=== PATIENT | female | born 1990 | race Caucasian/White ===

== ENCOUNTER 2018-03-11 14:52 | Emergency (ER) | payer OTHER ==
[2018-03-11 15:57] LABS: ABS Basophils 0.1 10^3/ul (0-0.2); ABS Eosinophils 0.1 10^3/ul (0-0.6); ABS Lymphocytes 3.2 10^3/ul (1.0-4.8); ABS Monocytes 0.6 10^3/ul (0-0.8); ABS Neutrophils 5.2 10^3/ul (1.5-7.7); ABS Nucleated RBC 0 10^3/ul; Eosinophil % 1.1 % (0-6); Hematocrit 37 % (35-47); Hemoglobin 12.9 g/dl (12.0-16.0); Lymphocyte % 34.8 % (25-47); Mean Corpuscular HGB Conc 35 g/dl (31-36); Mean Corpuscular Hemoglobin 30 pg (27-31); Mean Corpuscular Volume 86 fL (80-97); Mean Platelet Volume 9.8 um3 (7.4-10.4); Nucleated Red Blood Cells % 0; Platelet Count 235 10^3/ul (150-450); Red Cell Distribution Width 13 % (10.5-15); White Blood Count 9.3 10^3/ul (3.5-10.8)
[2018-03-11 16:23] LABS: Urine Appearance Cloudy; Urine Blood 3+ (Negative); Urine Color Amber; Urine Ketones Trace (Negative); Urine Protein 2+(100 mg/dL) (Negative); Urine Urobilinogen Negative (Negative)
[2018-03-11] MEDS ORDERED: Ketorolac INJ* 30 MG/ML 1 ML VIAL IV PUSH ONE (17:13)
[2018-03-11] MEDS ORDERED: NS 0.9% 1000 ML* 1,000 ML IV ONE (17:13)
--- NOTE | 2018-03-11 17:15 | RAD ---
INDICATION: Pelvic pain COMPARISON: None TECHNIQUE: Longitudinal and transverse transvaginal scans of the pelvis were obtained. FINDINGS: Uterus: The uterus is normal in size. There are no focal masses. The uterus measures 7.9 x 4.1 x 4.5 cm. Endometrial thickness: The endometrial thickness is measured at 1.0 cm. . Free fluid: There is trace significant free fluid . Ovaries: The ovaries are normal in size. The right ovary measures 5.0 x 2.9 x 3.8 cm. The left ovary measures 2.3 x 1.9 x 3.6 cm. There is a small right renal cyst measuring 1.8 cm likely representing a functional cyst.. Doppler interrogation demonstrates flow to each ovary. Other: None IMPRESSION: TRACE FREE FLUID. SMALL RIGHT OVARIAN CYST
--- NOTE | 2018-03-11 18:03 | ED ---
To Vega Stephanie, scribed for Christopher Card MD on 03/11/18 at 1545 . Abdominal Pain/Female - HPI Summary HPI Summary: The pt is a 27 y/o F presenting to the ED with c/o L sided abd pain that began last night. Symptoms include vaginal bleeding with bright red blood. The pt states her current bleeding is different from menstrual bleeding. Her abd pain is described as sharp and severe. She had her last US 6 months ago. LKMP was 2 months ago. - History of Current Complaint Chief Complaint: EDOBProblems Stated Complaint: PELVIC PAIN Time Seen by Provider: 03/11/18 15:32 Hx Obtained From: Patient Hx Last Menstrual Period: 01/02/18 Onset/Duration: Sudden Onset, Lasting Days - 1, Still Present Timing: Constant Severity Currently: Severe Pain Intensity: 8 Pain Scale Used: 0-10 Numeric Location: Suprapubic Radiates: No Character: Sharp Aggravating Factor(s): Nothing Alleviating Factor(s): Nothing Associated Signs and Symptoms: Positive: Vaginal Bleeding Allergies/Adverse Reactions: Allergies Allergy/AdvReac Type Severity Reaction Status Date / Time albuterol Allergy Rash Verified 03/11/18 15:18 Home Medications: Home Medications Fluticasone DISKUS 250 MCG(NF) [Flovent Diskus 250 MCG(NF)] 1 puff INH BID 03/11 [History Confirmed 03/11/18] Ipratropium HFA INHALER(NF) [Atrovent Hfa Inhaler(NF)] 2 puff INH Q6H PRN [History Confirmed 03/11/18] metFORMIN* [Glucophage 500 MG TAB *] 500 mg PO BID 03/11/18 [History Confirmed 03/11/18] PMH/Surg Hx/FS Hx/Imm Hx Sensory History: Denies: Hx Legally Blind EENT History: Denies: Hx Deafness - Surgical History Surgery Procedure, Year, and Place: NONE Infectious Disease History: No Infectious Disease History: Denies: Traveled Outside the [place] in Last 30 Days - Family History Known Family History: Negative: Renal Disease - Social History Occupation: Unemployed Lives: With Family Review of Systems Negative: Fever Positive: Abdominal Pain Positive: Other - vaginal bleeding Negative: Slurred Speech All Other Systems Reviewed And Are Negative: Yes Physical Exam - Summary Physical Exam Summary: VITAL SIGNS: Reviewed. GENERAL: Patient is a well-developed and nourished FEMALE who is lying comfortable in the stretcher. Patient is not in any acute respiratory distress. HEAD AND FACE: No signs of trauma. No ecchymosis, hematomas or skull depressions. No sinus tenderness. EYES: PERRLA, EOMI x 2, No injected conjunctiva, no nystagmus. EARS: Hearing grossly intact. Ear canals and tympanic membranes are within normal limits. MOUTH: Oropharynx within normal limits. NECK: Supple, trachea is midline, no adenopathy, no JVD, no carotid bruit, no c- spine tenderness, neck with full ROM. CHEST: Symmetric, no tenderness at palpation LUNGS: Clear to auscultation bilaterally. No wheezing or crackles. CVS: Regular rate and rhythm, S1 and S2 present, no murmurs or gallops appreciated. ABDOMEN: Soft, L pelvis tenderness with palpation. No signs of distention. No rebound no guarding, and no masses palpated. Bowel sounds are normal. EXTREMITIES: FROM in all major joints, no edema, no cyanosis or clubbing. NEURO: Alert and oriented x 3. No acute neurological deficits. Speech is normal and follows commands. SKIN: Dry and warm Triage Information Reviewed: Yes Vital Signs On Initial Exam: Initial Vitals Pulse BP Pulse Ox 61 119/66 100 03/11/18 15:17 03/11/18 15:17 03/11/18 15:17 Vital Signs Reviewed: Yes Diagnostics - Vital Signs Vital Signs Temp Pulse Resp BP Pulse Ox 03/11/18 15:19 97.8 F 50 16 119/66 100 03/11/18 15:17 61 119/66 100 - Laboratory Lab Results: Lab Results 03/11/18 03/11/18 03/11/18 Range/Units 15:44 15:44 16:11 WBC 9.3 (3.5-10.8) 10^3/ul RBC 4.30 (4.0-5.4) 10^6/ul Hgb 12.9 (12.0-16.0) g/dl Hct 37 (35-47) % MCV 86 (80-97) fL MCH 30 (27-31) pg MCHC 35 (31-36) g/dl RDW 13 (10.5-15) % Plt Count 235 (150-450) 10^3/ul MPV 9.8 (7.4-10.4) um3 Neut % (Auto) 56.0 (38-83) % Lymph % (Auto) 34.8 (25-47) % [place] % (Auto) 7.0 (0-7) % Eos % (Auto) 1.1 (0-6) % Baso % (Auto) 1.1 (0-2) % Absolute Neuts (auto) 5.2 (1.5-7.7) 10^3/ul Absolute Lymphs (auto) 3.2 (1.0-4.8) 10^3/ul Absolute Monos (auto) 0.6 (0-0.8) 10^3/ul Absolute Eos (auto) 0.1 (0-0.6) 10^3/ul Absolute Basos (auto) 0.1 (0-0.2) 10^3/ul Absolute Nucleated RBC 0 10^3/ul Nucleated RBC % 0 Sodium 137 L (139-145) mmol/L Potassium 3.7 (3.5-5.0) mmol/L Chloride 104 (101-111) mmol/L Carbon Dioxide 23 (22-32) mmol/L Anion Gap 10 (2-11) mmol/L BUN 11 (6-24) mg/dL Creatinine 0.90 (0.51-0.95) mg/dL Est GFR ( Amer) 95.2 (>60) Est GFR (Non-Af Amer) 74.0 (>60) BUN/Creatinine Ratio 12.2 (8-20) Glucose 88 (70-100) mg/dL Calcium 9.4 (8.6-10.3) mg/dL Total Bilirubin 1.90 H (0.2-1.0) mg/dL AST 22 (13-39) U/L ALT 30 (7-52) U/L Alkaline Phosphatase 25 L (34-104) U/L Total Protein 7.4 (6.4-8.9) g/dL Albumin 4.6 (3.2-5.2) g/dL Globulin 2.8 (2-4) g/dL Albumin/Globulin Ratio 1.6 (1-3) Beta HCG, Quant < 0.60 mIU/mL Urine Color Cara Urine Appearance Cloudy Urine pH 5.0 (5-9) Ur Specific [place] 1.020 (1.010-1.030) Urine Protein 2+(100 mg/dl) A (Negative) Urine Ketones Trace A (Negative) Urine Blood 3+ A (Negative) Urine Nitrate Negative (Negative) Urine Bilirubin Negative (Negative) Urine Urobilinogen Negative (Negative) Ur Leukocyte Esterase 1+ A (Negative) Urine WBC (Auto) 3+(>20/hpf) A (Absent) Urine RBC (Auto) 3+(>10/hpf) A (Absent) Ur Squamous Epith Cells Present A (Absent) Urine Bacteria Absent (Absent) Urine Glucose Negative (Negative) Result Diagrams: 03/11/18 15:44 03/11/18 15:44 Lab Statement: Any lab studies that have been ordered have been reviewed, and results considered in the medical decision making process. - Additional Comments Diagnostic Additional Comments: Transvaginal US reveals: TRACE FREE FLUID. SMALL RIGHT OVARIAN CYST. ED physician has reviewed this report. Re-Evaluation - Re-Evaluation First Eval Re-Evaluation Time: 18:00 Change: Unchanged - The pt declined receiving a pelvic examination. Abdominal Pain Fem Course/Dx - Course Course Of Treatment: This patient is a 27-year-old female who presents to the emergency department with a chief complaint of having left pelvic pain. She reports that the pain started yesterday and is approximately 6 out of 10. It is nonradiating. The patient has vaginal bleeding and she is unsure of her status. She has past medical history for PCOS. she has irregular periods. Blood test results without any significant abnormality.urinalysis is contaminated to afford the urine will be sent for cultures. Pelvic ultrasound impression: Trace free fluid. A small right ovarian cyst. Facial declined pelvic exam. In the ED course the patient was given IV fluids and Toradol for the pain. Since the patient is not . The blood was within normal limits, and her ultrasound shows an ovarian cyst the patient will be discharged home with follow-up with primary care physician. I discussed all the findings and test results with the patient. Patient was instructed to return to the emergency room immediately if any of the symptoms return or worsens. Plan of care was discussed with the patient and understands and agrees. All questions were answered at patient satisfaction. There were no further complaints or concerns. Lung exam before discharge: CTA B/L. Good air exchange. No wheezing or crackles heard. CVS: S1 and S2 present. No murmurs appreciated. Patient is alert and oriented x 3. Patient is hemodynamically stable. Patient will be discharged home with follow up PCP in the next 2-3 days - Diagnoses Provider Diagnoses: Pelvic pain, Vaginal bleeding Discharge - Sign-Out/Discharge Documenting (check all that apply): Discharge/Admit/Transfer - Discharge - Discharge Plan Condition: Stable Disposition: HOME Patient Education Materials: Pelvic Pain in Women (ED) Referrals: [facility] PH[facility]ICIAN REFERRAL [Outside] - 3 Days Additional Instructions: Return to the ED for new or worsening symptoms. - Billing Disposition and Condition Condition: STABLE Disposition: HOME The documentation as recorded by the To sanchez Stephanie accurately reflects the service I personally performed and the decisions made by , Christopher Card MD.
[2018-03-11 18:09] VITALS: BP 121/73
== END 2018-03-11 18:07 | disposition home or self-care (01) ==
LOC: ED 14:52
DX: R10.2 Pelvic and perineal pain (principal); N93.9 Abnormal uterine and vaginal bleeding, unspecified; N83.201 Unspecified ovarian cyst, right side; Z88.8 Allergy status to other drugs, medicaments and biological substances
CPT/HCPCS: 36415; 76830; 80053; 81003; 81015; 84702; 85025; 87077; 87086; 87186; 96374; 99283; J1885

== ENCOUNTER 2019-02-20 15:32 | Emergency (ER) | payer OTHER ==
--- OUTSIDE RECORDS SUMMARY | 2019-02-20 15:50 | XMS REPORT ---
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 Active 919544441 to excess calories Problem Menorrhagia with N92.0 Active 426535994 regular cycle Problem Mild intermittent J45.20 Active 586757134 asthma without complication Problem PCOS (polycystic E28.2 Active 86242190 ovarian syndrome) Problem Asthma J45.901 Active 782899372 exacerbation, mild Problem Body mass index Z68.37 Active 389580274 (BMI) of 37.0-37.9 in adult ALLERGIES No Information ENCOUNTERS Encounter Location Date Diagnosis Formerly [facility] [address] [facility] Jan, [place] [address] [facility] [address] [place], [place], [place] [address] Formerly [facility] [address] Dec, [place] [address] [facility] [address] [place], [place] [address] [facility] [address] [place], Oct, [place] [address] infection, unspecified type J06.9 [place] [id number] [facility] May, [place] [address] [facility] [address] [place], [place] [address] [place], [facility], [place] [address] [facility] [address] [place] [address] [place] [address] [place], [place] [address] [place], [place] [address] [place], [place] [address] [place], Oct, [place] [address] H57.12 and Near syncope R55 [address] [place], [place] [address] [place], [place], [place] [address] cycle N92.0 ; Other obesity due to excess calories E66.09 and Body mass index (BMI) of 37.0-37.9 in adult Z68.[address] [place], [place] [address] [place], [place] [address] [place], [place] [address] maxillary sinusitis J01.00 ; Body mass index (BMI) of 37.0-37.9 in adult Z68.37 and Other obesity due to excess calories E66.[address] Jul, [place] [address] [place], Jul, Ast[place] [address] J45.901 ; Prediabetes R73.03 and BMI 38.0-38.9,adult Z68.[address] [place], [place] [address] [place], Jun, [place] [address] without complication J45.20 ; PCOS (polycystic ovarian syndrome) E28.2 and History of prediabetes Z87.[address] [place], [place] [address] [place], [place] [address] [place], [place] [address] [place] [facility] [address] [place], [place], [place] [address] without complication J45.20 and Acute bronchitis, unspecified organism J20.9 [place] [facility] [address] [place], [place] [address] [place] [facility] [address] [place], [place] [address] [place] [facility] [address] [place] [address] [place] [facility] [address] [place] [address] [place] [facility] [address] [place], [place] [address] [place] [facility] [address] [place] [address] [place] [facility] [address] [place] [address] Former[facility] [address] [facility] [place] [address] [place] [facility] [address] [place], [place] [address] [place] [facility] [address] [place] [address] [place] [facility] [address] [place] [address] [place] [facility] [address] [place], [place] [address] [place] [facility] [address] [place], [place] [address] [place] [facility] [address] [place], [place] K04.7 [place] [address] [place] [facility] [address] [place], [place] [address] IMMUNIZATIONS No Known Immunizations SOCIAL HISTORY Never Assessed REASON FOR REFERRAL FUNCTIONAL STATUS PLAN OF CARE VITAL SIGNS MEDICATIONS Unknown Medications PROCEDURES No Known procedures RESULTS No Results REASON FOR VISIT Insurance Providers [facility] Member Patient Patient Patient Patient Patient Subscriber Subscriber Subscriber Group Insurance Plan Plan Plan Plan ID Relationship Address Phone Name Date of ID Name Date of No Type Insurance Insurance Insurance Coverage to Subscriber Address Phone Name Dates [facility] [phone] [facility] self [place] [id number] Medical [id number] Medical [facility] [address] [employer] [phone] Delta self [place] [id number] [place] [id number] [facility] [place] [address] MEDICAL (GENERAL) HISTORY Type Description Date Medical History PCOS Medical History asthma Surgical History Right elbow broken 10 years old Hospitalization History [facility] Hospitalization History hematoma in spleen young teen
--- NOTE | 2019-02-20 19:55 | ED ---
Upper Extremity Pain - HPI Summary HPI Summary: 28-year-old female presents with pain to her right arm for the past 2 weeks. She states that it starts in her right shoulder pain radiates to her entire arm. States that it is shooting pain and then becomes more a of burning. She admits to some numbness and tingling. She states she's been having weakness of the right hand. She denies any neck pain. No fevers. No chest pain or shortness breath. This is never happened before. She denies any injury. She is currently 35 weeks . Baby is moving as normal. No contractions or vaginal bleeding. She states the pain is extreme. no difficulties with speech. no headaches. no weakness or pain into legs. no back pain. she is right handed - History of Current Complaint Chief Complaint: EDNeurologicalDeficit Stated Complaint: SWELLING IN RT ARM Time Seen by Provider: 02/20/19 19:38 Hx Last Menstrual Period: 01/02/18 - Allergies/Home Medications Allergies/Adverse Reactions: Allergies Allergy/AdvReac Type Severity Reaction Status Date / Time albuterol Allergy Rash Verified 02/20/19 15:40 Home Medications: Home Medications Vitamin TAB* 1 tab PO DAILY 02/20/19 [History Confirmed 02/20/19] PMH/Surg Hx/FS Hx/Imm Hx Endocrine/Hematology History: Denies: Hx Anticoagulant Therapy Respiratory History: Denies: Hx Asthma Sensory History: Denies: Hx Legally Blind, Hx Deafness Opthamlomology History: Denies: Hx Legally Blind - Surgical History Surgery Procedure, Year, and Place: NONE Infectious Disease History: No Infectious Disease History: Denies: Traveled Outside the [place] in Last 30 Days - Family History Known Family History: Positive: Blood Disorder Negative: Renal Disease - Social History Alcohol Use: Rare Substance Use Type: Reports: None Smoking Status (MU): Never Smoked Tobacco Review of Systems Negative: Fever Negative: Chest Pain Negative: Shortness Of Breath Positive: Myalgia - right arm pain All Other Systems Reviewed And Are Negative: Yes Physical Exam Triage Information Reviewed: Yes Vital Signs On Initial Exam: Initial Vitals Temp Pulse Resp BP Pulse Ox 98.6 F 79 16 115/74 98 02/20/19 15:36 02/20/19 15:36 02/20/19 15:36 02/20/19 15:36 02/20/19 15:36 Vital Signs Reviewed: Yes Appearance: Positive: Well-Appearing Skin: Positive: Warm, Dry Head/Face: Positive: Normal Head/Face Inspection Eyes: Positive: Normal, Conjunctiva Clear ENT: Positive: Pharynx normal Respiratory/Lung Sounds: Positive: Clear to Auscultation, Breath Sounds Present Cardiovascular: Positive: Normal, RRR Musculoskeletal: Positive: Limited @ - decreased strength right arm, Other - good pulses, able to oppose all fingers, tenderness underneath right shoulder blade Neurological: Positive: Normal Psychiatric: Positive: Normal Diagnostics - Vital Signs Vital Signs Temp Pulse Resp BP Pulse Ox 02/20/19 19:00 70 22 99 02/20/19 18:50 68 15 112/65 99 02/20/19 18:22 18 02/20/19 18:20 120/70 02/20/19 17:58 99.4 F 75 16 130/69 100 02/20/19 15:36 98.6 F 79 16 115/74 98 - Laboratory Result Diagrams: 02/20/19 19:55 02/20/19 19:55 Lab Statement: Any lab studies that have been ordered have been reviewed, and results considered in the medical decision making process. - Ultrasound No standard instances Ultrasound Interpretation Completed By: Radiologist Summary of Ultrasound Findings: IMPRESSION: No DVT in the right upper extremity. Course/Dx - Course Course Of Treatment: 28-year-old female presents with pain to her right arm for the past 2 weeks. She states that it starts in her right shoulder pain radiates to her entire arm. States that it is shooting pain and then becomes more a of burning. She admits to some numbness and tingling. She states she's been having weakness of the right hand. She denies any neck pain. No fevers. No chest pain or shortness breath. This is never happened before. She denies any injury. She is currently 35 weeks . Baby is moving as normal. No contractions or vaginal bleeding. She states the pain is extreme. no difficulties with speech. no headaches. no weakness or pain into legs. no back pain. she is right handed On exam has full ROM. has decreased strength 4/5 of entire right extremity as compared to left. sensation grossly intact. biceps reflex intact. ultrasound normal. lab work within normal limit. discussed should follow up with neurology for futher work up. patient understand and agrees with plan. - Diagnoses Differential Diagnosis/HQI/PQRI: Positive: Strain, Sprain, Other - dvt Provider Diagnoses: Right arm pain Discharge - Sign-Out/Discharge Documenting (check all that apply): Patient Departure Patient Received Moderate/Deep Sedation with Procedure: No - Discharge Plan Condition: Good Disposition: HOME Patient Education Materials: Paresthesia (ED) Referrals: Yayo Treviño MD [Medical Doctor] - Session Kartik MARTE [Primary Care Provider] - Additional Instructions: follow up with neurology Take Tylenol every 6 hours for pain Return to ED if develop any new or worsening symptoms - Billing Disposition and Condition Condition: GOOD Disposition: Home
[2019-02-20 20:06] LABS: ABS Basophils 0.1 10^3/ul (0-0.2); ABS Eosinophils 0.2 10^3/ul (0-0.6); ABS Lymphocytes 2.8 10^3/ul (1.0-4.8); ABS Monocytes 0.7 10^3/ul (0-0.8); ABS Neutrophils 7.8 10^3/ul (1.5-7.7); Eosinophil % 1.4 %; Hematocrit 32 % (35-47); Hemoglobin 10.9 g/dL (12.0-16.0); Lymphocyte % 24.2 %; Mean Corpuscular HGB Conc 34 g/dL (31-36); Mean Corpuscular Hemoglobin 30 pg (27-31); Mean Corpuscular Volume 88 fL (80-97); Mean Platelet Volume 9.9 fL (7.4-10.4); Platelet Count 206 10^3/uL (150-450); Red Blood Count 3.69 10^6 /uL (3.70-4.87); Red Cell Distribution Width 14 % (10.5-15); White Blood Count 11.6 10^3/uL (3.5-10.8)
[2019-02-20 20:14] LABS: Albumin 3.3 g/dL (3.2-5.2); Calcium 8.8 mg/dL (8.6-10.3); Magnesium 1.8 mg/dL (1.9-2.7); Potassium 3.7 mmol/L (3.5-5.0); Total Bilirubin 0.6 mg/dL (0.2-1.0)
[2019-02-20 20:20] LABS: Albumin/Globulin Ratio 1.1 (1-3); BUN/Creatinine Ratio 14.3 (8-20); EGFR African American 153.8 (>60); EGFR Non-African American 127.1 (>60); Globulin 2.9 g/dL (2-4); Total Protein 6.2 g/dL (6.4-8.9)
[2019-02-20 21:19] LABS: TSH (Thyroid Stimulating Horm) 0.97 mcIU/mL (0.34-5.60)
[2019-02-20 22:44] VITALS: BP 116/75
== END 2019-02-20 22:44 | disposition home or self-care (01) ==
LOC: ED 15:32
DX: M79.601 Pain in right arm (principal); R60.0 Localized edema
CPT/HCPCS: 36415; 80053; 83735; 84443; 85025; 99283

== ENCOUNTER 2019-11-02 17:39 | Emergency (ER) | payer BC, OTHER ==
--- NOTE | 2019-11-02 17:53 | ED ---
Abdominal Pain/Female - HPI Summary HPI Summary: Pt is a 29 y/o F presenting to the ED brought in by EMS for GI issues. Pt woke up this morning and noticed she didnt feel well characterized by nausea, tried to have a bowel movement but had to strain, and then began vomiting violently. She notes she developed abd pain just below her navel that moved to her LLQ, and she vomited so violently she lost control of her bladder. She denies diarrhea, constipation, hematuria, dysuria, or abnormal vaginal discharge. She had a 7 months ago and notes she had some slight complications afterwards with her scar, but nothing like this. Medications reviewed. Allergies noted. - History of Current Complaint Stated Complaint: ABD PAIN AND LETHARGY PER EMS Time Seen by Provider: 11/02/19 17:41 Hx Obtained From: Patient Hx Last Menstrual Period: 01/02/18 Onset/Duration: Sudden Onset, Lasting Hours, Still Present Timing: Hours Severity Initially: Moderate Severity Currently: Severe Location: Umbilical Radiates: Yes Radiates to: LLQ Aggravating Factor(s): Nothing Alleviating Factor(s): Nothing Associated Signs and Symptoms: Positive: Nausea, Vomiting. Negative: Constipation, Urinary Symptoms, Diarrhea Allergies/Adverse Reactions: Allergies Allergy/AdvReac Type Severity Reaction Status Date / Time albuterol Allergy Rash Verified 02/20/19 15:40 PMH/Surg Hx/FS Hx/Imm Hx Previously Healthy: Yes Endocrine/Hematology History: Denies: Hx Anticoagulant Therapy Respiratory History: Denies: Hx Asthma Sensory History: Denies: Hx Legally Blind, Hx Deafness Opthamlomology History: Denies: Hx Legally Blind - Surgical History Surgery Procedure, Year, and Place: NONE - Family History Known Family History: Positive: Blood Disorder Negative: Renal Disease - Social History Alcohol Use: Rare Hx Substance Use: No Substance Use Type: Reports: None Hx Tobacco Use: No Smoking Status (MU): Never Smoked Tobacco Review of Systems Positive: Abdominal Pain, Vomiting, Nausea. Negative: Diarrhea, Other - constipation Positive: incontinence - one episode. Negative: dysuria, hematuria, other - vaginal discharge All Other Systems Reviewed And Are Negative: Yes Physical Exam - Summary Physical Exam Summary: Constitutional: Well-developed, Well-nourished, Alert. (-) Distressed Skin: Warm, Dry HENT: Normocephalic; Atraumatic Eyes: Conjunctiva normal Neck: Musculoskeletal ROM normal neck. (-) JVD, (-) Stridor, (-) Tracheal deviation Cardio: Rhythm regular, rate normal, Heart sounds normal; Intact distal pulses; Radial pulses are 2+ and symmetric. (-) Murmur Pulmonary/Chest wall: Effort normal. (-) Respiratory distress, (-) Wheezes, (-) Rales Abd: Soft, tenderness in LLQ, (-) Distension, (-) Guarding, (-) Rebound Musculoskeletal: (-) Edema Lymph: (-) Cervical adenopathy Neuro: Alert, Oriented x3 Psych: Mood and affect Normal Triage Information Reviewed: Yes Vital Signs Reviewed: Yes Procedures - Sedation Patient Received Moderate/Deep Sedation with Procedure: No Diagnostics - Laboratory Result Diagrams: 11/02/19 18:15 11/02/19 18:15 Lab Statement: Any lab studies that have been ordered have been reviewed, and results considered in the medical decision making process. - CT CT a/p CT Interpretation Completed By: Radiologist Summary of CT Findings: 1. No CT findings to correlate with patient's symptomatology. Specifically no diverticulitis. 2. Right nephrolithiasis. ED physician has reviewed this report. - EKG 2124 Cardiac Rate: NL - 94bpm EKG Rhythm: Sinus Rhythm ST Segment: Normal Ectopy: None Summary of EKG Findings: EKG at 2124 shows NSR at 94bpm with multiple PVCs. No STEMI. ED physician has reviewed and interpreted this EKG. Re-Evaluation - Re-Evaluation 1st re-eval Re-Evaluation Time: 19:55 Change: Improved Comment: Pt is feeling better, is somewhat sleepy after the Morphine. Encouraged to give urine sample, will re-eval. 2nd re-eval Re-Evaluation Time: 20:48 Change: Unchanged Comment: Failed PO challenge. Will try ODT. Swabbed for flu. 3rd re-eval Re-Evaluation Time: 21:36 Change: Unchanged Comment: Administering Reglan. 4th re-eval Re-Evaluation Time: 21:52 Change: Improved Comment: Pt tolerating PO. Will d/c Abdominal Pain Fem Course/Dx - Course Course Of Treatment: Patient is here with left-sided abdominal pain which she's had off and on ever since having a . Patient has also been vomiting with her symptoms. Patient does have tenderness on the left abdomen so a CT scan was ordered which showed no acute process. Patient does have a right kidney stone but this would not explain her symptoms. Patient had no evidence of UTI on UA. Patient's blood work is grossly unremarkable. Patient was given IV fluids, Zofran 8 mg, and Reglan 10 mg with improvement in her symptoms. Patient is able to tolerate by mouth prior to discharge. Patient and family were comfortable with discharge. - Diagnoses Provider Diagnoses: Vomiting, LUQ pain Discharge ED - Sign-Out/Discharge Documenting (check all that apply): Patient Departure - Discharge Plan Condition: Stable Disposition: HOME Prescriptions: Dicyclomine CAP* [Bentyl CAP*] 10 mg PO TID PRN #12 cap PRN Reason: abdominal cramping Metoclopramide TAB* [Reglan TAB*] 10 mg PO Q8H #12 tab Patient Education Materials: Acute Abdominal Pain (ED) Referrals: Session Kartik MARTE [Physician Tire Mold Engraver] - Additional Instructions: Return to the emergency department if you cannot drink for 24 hours, if you don' t urinate for 16 hours, or if you have severe abdominal pain. Follow up with your primary care provider in 1-3 days. - Billing Disposition and Condition Condition: STABLE Disposition: Home - Attestation Statements Document Initiated by Eileen: Yes Documenting Scribe: Yani Antoine Provider For Whom Eileen is Documenting (Include Credential): José Miguel Wolf MD. Scribe Attestation: Yani Vega scribed for José Miguel Wolf MD. on 11/03/19 at 1013. Scribe Documentation Reviewed: Yes Provider Attestation: The documentation as recorded by the Yani sanchez accurately reflects the service I personally performed and the decisions made by , José Miguel Wolf MD. Status of Scribe Document: Viewed
[2019-11-02] MEDS ORDERED: Ondansetron INJ* 2 MG/ML VIAL IV ONE (17:58)
[2019-11-02] MEDS ORDERED: NS 0.9% 1000 ML** 1,000 ML IV ONE (17:58)
[2019-11-02] MEDS ORDERED: Morphine 4 MG/ML VIAL (1 ml) 4 MG/ML VIAL IV ONE (17:58)
--- OUTSIDE RECORDS SUMMARY | 2019-11-02 18:01 | XMS REPORT | Continuity of Care Document ---
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 [phone] Practitioner Problems Description No Information Available Social History Type Date Description Comments Sex Unknown Tobacco Use Start: Unknown Never Smoked Cigarettes Smoking Status Reviewed: 09/06/19 Never Smoked Cigarettes ETOH Use Denies alcohol use Tobacco Use Start: Unknown Patient has never smoked Recreational Drug Use Denies Drug Use Exercise Type/Frequency Exercises regularly walks 2 miles 2 x weekly and sometimes at lunchtime Allergies, Adverse Reactions, Alerts Active Allergies Reaction Severity Comments Date Ranch Dressing 08/21/2019 Albuterol 08/21/2019 Medications Active Medications SIG Qnty Indications Ordering Date Provider Nuvaring insert vaginally 3units Z30.09 Liberty Díaz, 09/06/2019 x 3 week every PATROL MAN-Cde 0.12-0.015mg/24HR month Ring Atrovent HFA 1 puff twice a 12.900gm J45.20 Sudheer Mott, day PATROL MAN 17mcg/Act Aerosol Multivitamin Women 1 by mouth every Unknown day Tablets Immunizations Description No Information Available Vital Signs Date Vital Result Comment 09/06/2019 2:49pm Height 63 inches 5'3" Weight 206.00 lb Heart Rate 60 /min BP Systolic 111 mmHg BP Diastolic 73 mmHg O2 % BldC Oximetry 96 % BMI (Body Mass Index) 36.5 kg/m2 08/21/2019 12:58pm Height 63.0 inches 5'3" Weight 205.00 lb Heart Rate 52 /min BP Systolic 123 mmHg BP Diastolic 84 mmHg Body Temperature 98.0 F O2 % BldC Oximetry 98 % BMI (Body Mass Index) 36.3 kg/m2 Results Description No Information Available Procedures Description No Information Available Medical Devices Description No Information Available Encounters Type Date Location Provider Dx Diagnosis Office Visit 08/21/2019 [facility] Internal Sudheer Mott, Z00.00 Encntr for general 1:20p Medicine - [facility] adult medical exam w/o abnormal findings J45.20 Mild intermittent asthma, uncomplicated Assessments Date Code Description Provider 09/06/2019 Z30.09 Encounter for other general counseling and Aj Flannery advice on contraception 09/06/2019 R68.82 Decreased libido Aj Flannery 09/06/2019 R10.2 Pelvic and perineal pain Aj Flannery 08/21/2019 Z00.00 Encounter for general adult medical JOANA Valadez examination without abnormal findings 08/21/2019 J45.20 Mild intermittent asthma, uncomplicated JOANA Valadez Plan of Treatment Future Appointment(s):06/17/2020 1:20 pm - JOANA Valadez at [facility] Internal Medicine [facility]09/06/2019 - [place] FlanneryCdeZ30.09 Encounter for other general counseling and advice on contraceptionNew Medication:Nuvaring 0.12- 0.015 mg/24HR - insert vaginally x 3 week every monthRecommendations:Please call if you experience any problems with the Nuvaring Take the Nuvaring out if you expericnce any onset of severe headache, severe leg pain or swelling or severe abdominal painR68.82 Decreased nsqmkwW47.2 Pelvic and perineal painReferral:Janeth Green, PT, OCS, Physical Therapist Functional Status Description No Information Available Mental Status Description No Information Available Referrals Refer to Dr Reason for Referral Status Appt Date Janeth Green, PT, OCS pelvic pain Sent [address] [place] [address] [phone] Liberty Díaz FNP-Cde Sent 09/06/2019 [address] [place] [address] [place] [address] [phone]
[2019-11-02 18:21] LABS: ABS Eosinophils 0.1 10^3/ul (0-0.6); ABS Lymphocytes 0.7 10^3/ul (1.0-4.8); ABS Monocytes 0.4 10^3/ul (0-0.8); ABS Neutrophils 7.9 10^3/ul (1.5-7.7); Eosinophil % 0.6 %; Hematocrit 41 % (35-47); Hemoglobin 14.1 g/dL (12.0-16.0); Lymphocyte % 7.6 %; Mean Corpuscular HGB Conc 35 g/dL (31-36); Mean Corpuscular Hemoglobin 30 pg (27-31); Mean Corpuscular Volume 86 fL (80-97); Platelet Count 194 10^3/uL (150-450); Red Blood Count 4.74 10^6 /uL (3.70-4.87); Red Cell Distribution Width 14 % (10-15); White Blood Count 9.1 10^3/uL (3.5-10.8)
[2019-11-02 18:39] LABS: Albumin 4.2 g/dL (3.2-5.2); Albumin/Globulin Ratio 1.5 (1-3); BUN/Creatinine Ratio 17.4 (8-20); Calcium 8.5 mg/dL (8.6-10.3); EGFR African American 86.2 (>60); EGFR Non-African American 71.2 (>60); Globulin 2.8 g/dL (2-4); Total Bilirubin 1.6 mg/dL (0.2-1.0)
[2019-11-02] MEDS ORDERED: Iohexol 300* (CONTRAST) 10 ML SDV IV ONE (18:41)
[2019-11-02 18:45] LABS: HCG Pregnancy 0.65 mIU/mL
[2019-11-02 20:15] LABS: Urine Appearance Clear; Urine Bilirubin Negative (Negative); Urine Blood 1+ (Negative); Urine Color Yellow; Urine Glucose Negative (Negative); Urine Ketones Trace (Negative); Urine Nitrite Negative (Negative); Urine Protein Negative (Negative); Urine Specific Gravity 1.041 (1.010-1.030); Urine Urobilinogen Negative (Negative)
[2019-11-02] MEDS ORDERED: Ondansetron TAB* 4 MG PO ONE (20:19)
[2019-11-02 20:21] LABS: Urine Bacteria Absent (Absent); Urine Red Blood Cell Trace(0-2/hpf) (Absent); Urine Squamous Epithelial Cell Present (Absent); Urine White Blood Cell Trace(0-5/hpf) (Absent)
[2019-11-02] MEDS ORDERED: Metoclopramide IV* 5 MG/ML 2 ML VIAL IV ONE (21:18)
[2019-11-02 21:26] LABS: Influenza A Molecular NEGATIVE (Negative); Influenza B Molecular NEGATIVE (Negative)
[2019-11-02 22:23] VITALS: BP 111/66
== END 2019-11-02 22:25 | disposition home or self-care (01) ==
LOC: ED 17:39
DX: R11.2 Nausea with vomiting, unspecified (principal); N20.0 Calculus of kidney; M79.602 Pain in left arm; R10.9 Unspecified abdominal pain
CPT/HCPCS: 36415; 74177; 80053; 81003; 81015; 83690; 84702; 85025; 87086; 93005; 99284; A9270-GY; J2270; J2405; J2765; Q9967